=== PATIENT | male | born 1940 | race Caucasian/White ===

== ENCOUNTER 2018-01-09 02:08 | Emergency (ER) | payer MEDICARE, OTHER ==
[~2018-01-09] VITALS: Ht 177.8 cm; Wt 94.0 kg
[2018-01-09 03:56] LABS: MICROSCOPIC AUTO
[2018-01-09 04:05] LABS: CULTURE INDICATED? NO
[2018-01-09 04:06] LABS: ANION GAP 11 mmol/L (5-15); CALCIUM 8.9 mg/dL (8.5-10.1); CHLORIDE 109 mmol/L (98-107); CREATININE 1.05 mg/dL (0.7-1.3)
[2018-01-09 04:35] VITALS: BP 131/75
== END 2018-01-09 04:47 | disposition home or self-care (01) ==
LOC: ED 02:32
DX: R33.9 Retention of urine, unspecified (principal)
CPT/HCPCS: 36415; 51702; 80048; 81001; 82040; 99284